=== PATIENT | female | born 1990 | race Caucasian/White ===

== ENCOUNTER 2022-02-24 11:51 | Outpatient (CLI) | payer OTHER, SELFPAY ==
[2022-02-24 22:14] LABS: Albumin* 4.3 g/dL (3.3-5.0); Chloride* 100 mmol/L (96-114)
[2022-02-24 22:15] LABS: Potassium* 4.7 mmol/L (3.6-5.1); Sodium* 138 mmol/L (135-149)
[2022-02-24 22:17] LABS: Aspartate Amino Transferase* 43 U/L (12-35); Bilirubin Total* 0.8 mg/dL (0.1-1.5); Blood Urea Nitrogen* 12 mg/dL (5-24); Carbon Dioxide* 33 mmol/L (20-32); Cholesterol* 262 mg/dL (90-199); Creatinine* 0.7 mg/dL (0.5-1.5); Estimated Glomerular Filt Rate 119 ml/min; Total Protein* 7.7 g/dL (6.0-8.3)
[2022-02-24 22:18] LABS: Alanine Aminotransferase* 62 U/L (4-35); Alkaline Phosphatase* 119 U/L (40-150); Calcium* 9.8 mg/dL (8.4-10.6); Glucose* 165 mg/dL (60-115); HDL Cholesterol* 47 mg/dL (>=50); LDL Cholesterol Calculated 176 mg/dL (<100); Triglycerides* 193 mg/dL (40-149)
== END 2022-02-24 11:52 | disposition home or self-care (01) ==
PROVIDERS: PCP Physician Assistant Medical; Visit Provider Physician Assistant Medical
DX: Z00.00 Encounter for general adult medical examination without abnormal findings (principal); E11.9 Type 2 diabetes mellitus without complications; E78.5 Hyperlipidemia, unspecified; R73.09 Other abnormal glucose
CPT/HCPCS: 80053; 80061; 84443

== ENCOUNTER 2022-07-12 08:14 | Outpatient (CLI) | payer OTHER, SELFPAY | END 2022-07-12 08:15 | disposition home or self-care (01) | LOC: NFLDREF 07-16 08:40 | PROVIDERS: PCP Physician Assistant Medical; Referring Provider Physician Assistant Medical; Visit Provider Physician Assistant Medical | DX: E11.9 Type 2 diabetes mellitus without complications (principal) | CPT/HCPCS: 80061 ==

== ENCOUNTER 2023-08-10 09:39 | Outpatient (CLI) | payer OTHER, SELFPAY | END 2023-08-10 09:40 | disposition home or self-care (01) | LOC: NFLDREF 08-30 12:00 | PROVIDERS: PCP Physician Assistant Medical; Referring Provider Physician Assistant Medical; Visit Provider Physician Assistant Medical | DX: Z00.00 Encounter for general adult medical examination without abnormal findings (principal); F32.A Depression, unspecified; G47.9 Sleep disorder, unspecified; E11.9 Type 2 diabetes mellitus without complications; E66.9 Obesity, unspecified; E78.5 Hyperlipidemia, unspecified; R73.09 Other abnormal glucose; R79.89 Other specified abnormal findings of blood chemistry; N92.6 Irregular menstruation, unspecified; F41.9 Anxiety disorder, unspecified | CPT/HCPCS: 80053; 80061; 82043; 82570; 82607; 84443 ==

== ENCOUNTER 2023-09-29 14:34 | Outpatient (CLI) | payer OTHER, SELFPAY | END 2023-09-29 14:35 | disposition home or self-care (01) | PROVIDERS: PCP Physician Assistant Medical; Visit Provider Emergency Medicine | DX: R19.7 Diarrhea, unspecified (principal); R11.10 Vomiting, unspecified | CPT/HCPCS: 80076; 83690 ==

== ENCOUNTER 2024-01-26 08:57 | Outpatient (CLI) | payer OTHER, SELFPAY | END 2024-01-26 08:58 | disposition home or self-care (01) | PROVIDERS: PCP Physician Assistant Medical; Visit Provider Physician Assistant Medical | DX: E78.5 Hyperlipidemia, unspecified (principal); R79.89 Other specified abnormal findings of blood chemistry | CPT/HCPCS: 80061; 80076 ==

== ENCOUNTER 2024-07-18 15:39 | Outpatient (CLI) | payer OTHER, SELFPAY | END 2024-07-18 15:40 | disposition home or self-care (01) | LOC: LKVREF 15:40 | PROVIDERS: PCP Physician Assistant Medical; Visit Provider Physician Assistant Medical | DX: E11.65 Type 2 diabetes mellitus with hyperglycemia (principal); Z79.84 Long term (current) use of oral hypoglycemic drugs; Z79.85 Long-term (current) use of injectable non-insulin antidiabetic drugs | CPT/HCPCS: 80053 ==